=== PATIENT | male | born 1940 | race Caucasian/White ===

== ENCOUNTER → 2016-10-29 | Outpatient (CLI) | payer OTHER ==
[~2016-10-29] MED LIST: AMOXICILLIN 50500 MG PO; ASPIR 8181 MG PO; ASPIRIN EC81 M1 PO; AVELOX 400 MG400 MG PO; BACTRIM DS TAB1 EACH PO; BAYER CHEWABLE81 MG PO; CEFTIN500 MG; CEFUROXIME250 MG PO; CENTRUM SILVER1 EAC2 PO; CLONAZEPAM 1 MG1 M1; CLONAZEPAM OR; D3 DOTS2000 UNIT PO; EFFEXOR XR75 MG PO; EFFEXOR75 MG PO; ENDOCET 5-3251 EACH; FISH OIL OMEGA1 EAC1 PO; FISHOIL OR; FLOMAX PO; FLOMAX0.4 MG PO; FLONASE 0.05%50 MCG NASAL; HYDROCODON-ACE1 EAC8; HYDROXYZINE HCL25 M1; HYDROXYZINE HCL25 M1 PO; IMDUR 60 MG TAB60 M1 PO; IRON325 PO; KLONOPIN1 MG PO; LEXAPRO 10 MG T10 MG PO; LIPITOR 40 MG T40 M1 PO; METOPROLOL SUCC50 MG PO; NICOTINE TRANSD21 M1 TD; NITROGLYCERIN0.4 MG SL; NORCO 5-325 TA1 EACH PO; OMEPRAZOLE20 MG PO; PERCOCET 5-3251 EACH PO; PLAVIX 75 MG TA75 M1 PO; PREDNISONE 10 M10 MG PO; PROTONIX40 M2 PO; SIMVASTATIN40 MG PO; SINGULAIR 10 MG10 M1 PO; TAMSULOSIN HCL0.4 MG PO; TOPROL XL25 MG PO; VENLAFAXIN75 MG/1 T2 PO; VITAMIN B125000 MCG PO; WELLBUTRIN SR150 M1 PO
[2016-10-29 09:31] LABS: HEMATOCRIT 39.2 % (42.0-52.0); HEMOGLOBIN 12.5 gm/dL (14.0-18.0); MCH 27.1 pg (26.0-34.0); MCHC 31.9 g/dL (28.0-37.0); RBC 4.61 mil/uL (4.50-6.00); RDW 17.8 % (10.5-14.5); WBC 6.9 thou/uL (4.0-11.0)
[2016-10-29 09:32] LABS: URINE BILIRUBIN NEGATIVE (Negative); URINE BLOOD NEGATIVE (Negative); URINE COLOR YELLOW; URINE GLUCOSE-RANDOM* NEGATIVE (Negative); URINE KETONES NEGATIVE (Negative); URINE NITRITE NEGATIVE (Negative); URINE PROTEIN (DIPSTICK) NEGATIVE (Negative); URINE UROBILINOGEN 0.2 E.U./dl (0.2-1.0)
[2016-10-29 09:52] LABS: ALBUMIN 3.7 g/dL (3.4-5.0); CALCIUM 9.3 mg/dL (8.5-10.1); CREATININE 1.2 mg/dL (0.7-1.3); POTASSIUM 4.4 mmol/L (3.5-5.1); TOTAL BILIRUBIN 0.4 mg/dL (<0.1-1.0); TOTAL PROTEIN 7.5 g/dL (6.4-8.2)
[2016-10-29 20:06] LABS: FREE T4 1.08 ng/dL (0.82-1.77)
[2016-10-30 04:07] LABS: GLYCOHEMOGLOBIN (HGB A1C) 5.4 % (4.8-5.6)
== END ==
LOC: CAT 08:39
PROVIDERS: Internal Medicine Pulmonary Disease
DX: I71.4 Abdominal aortic aneurysm, without rupture (principal); I25.84 Coronary atherosclerosis due to calcified coronary lesion; I10 Essential (primary) hypertension; K46.9 Unspecified abdominal hernia without obstruction or gangrene; G47.33 Obstructive sleep apnea (adult) (pediatric); R07.9 Chest pain, unspecified; R53.83 Other fatigue; R25.1 Tremor, unspecified

== ENCOUNTER → 2017-10-16 | Outpatient (CLI) | payer OTHER | LOC: RAD 09:17 | DX: K44.9 Diaphragmatic hernia without obstruction or gangrene (principal); M41.86 Other forms of scoliosis, lumbar region; M47.892 Other spondylosis, cervical region ==

== ENCOUNTER → 2019-06-11 | Outpatient (CLI) | payer OTHER | LOC: ULTRA 11:18 | DX: R22.1 Localized swelling, mass and lump, neck (principal) ==

== ENCOUNTER → 2019-06-18 | Outpatient (CLI) | payer OTHER ==
[2019-06-18 10:07] LABS: CREATININE 1.3 mg/dL (0.7-1.3)
== END ==
LOC: CAT 09:15
PROVIDERS: Neuromusculoskeletal Medicine & OMM
DX: K11.8 Other diseases of salivary glands (principal)

== ENCOUNTER → 2019-10-08 | Outpatient (CLI) | payer OTHER ==
--- NOTE | 2019-10-09 16:07 | PATH ---
[facility] [place] [address] PATHOLOGY RPT PROCEDURE Name: ELIAS HOWARD Room #: [facility].#: [id number] Admission: 10/08/19 Date of : 42 Discharge: Report #: [id number] Path Case #: [id number] Note [facility] Accession Number: [id number] TESTS RESULT FLAG UNITS REF RANGE LAB Clinician Provided Cytology Information No. of containers..01 Other (Miscellaneous) Source: 01 RT PAROTID MASS DIAGNOSIS: 02 RIGHT PAROTID MASS, FINE NEEDLE ASPIRATION INCONCLUSIVE. THIS INTERPRETATION INCLUDES EVALUATION OF A CELL BLOCK. Comment: Examination shows numerous lymphocytes with no other epithelial cells. Findings may be suggestive of an intraparotid lymph node, atypical lymphoid population involving a lymph node within the parotid, partially sampled Warthin's tumor amongst other possibilities. Apocrine epithelium is not identified to suggest Warthin's tumor; however lack of the same does not argue against one due to the inherent sampling bias. There is no salivary gland tissue present. Findings are inconclusive. Please correlate clinically and follow-up as indicated. Pathologist ICD10: 02 R22.1 Signed out by: Qiana Roberts MD, Pathologist NPI- [id number] Performed by: Louise Valdes, Plate Colorer (ASC) Gross description: 01 25ML, CLEAR COLORLESS, 4 FX 4 AD /LCS 10/08/2019 1725 Local FLAG LEGEND: L-Low Normal,H-High Normal,LL-Alert Low,HH-Alert High <-Panic Low,>-Panic High,A-Abnormal,AA-Critical Abnormal Performed at: [address] [facility] [place] [address] Jerad Leach MD, [address] [facility] [id number] Qiana Roberts MD, Specimen Comment: A courtesy copy of this report has been sent to [phone], [phone] [address] PATHOLOGY RPT PROCEDURE Name: HOWARDELIAS Davis Room #: NISHI [place]#: [id number] Admission: 10/08/19 Date of : 42 Discharge: Report #: [id number] Path Case #: [id number] Specimen Comment: [id number] Specimen Comment: Report sent to / DR DEL TORO Performed at: 01 [facility] [place] [address] [place] [address] [address], [place], [place] [id number] MD Jerad Leach MD Phone: [phone]
== END | disposition home or self-care (01) ==
LOC: ULTRA 09:54
PROVIDERS: ATTEND Otolaryngology
DX: K11.8 Other diseases of salivary glands (principal); R22.1 Localized swelling, mass and lump, neck; Z79.899 Other long term (current) drug therapy; Z79.82 Long term (current) use of aspirin

== ENCOUNTER → 2020-10-03 | Outpatient (CLI) | payer OTHER | LOC: RAD 16:02 | PROVIDERS: ATTEND Internal Medicine | DX: J90 Pleural effusion, not elsewhere classified (principal); K44.9 Diaphragmatic hernia without obstruction or gangrene; J44.9 Chronic obstructive pulmonary disease, unspecified ==